=== PATIENT | male | born 1975 | race Caucasian/White ===

== ENCOUNTER 2017-07-06 13:33 | Inpatient (IN) | payer BC ==
[2017-07-06] MEDS ORDERED: methylPREDNISolone SOD SUCCI 125 MG/2 ML VIAL IV STA (15:31)
[2017-07-06] MEDS ORDERED: IPRATROPIUM-ALBUTEROL 3 ML NEB INHALATION STA (15:31)
--- NOTE | 2017-07-06 15:45 | ED ---
SOB HPI - General Chief Complaint: Shortness of Breath Stated Complaint: asthma attack Time Seen by Provider: 07/06/17 15:13 Source: patient, RN notes reviewed Mode of arrival: ambulatory Limitations: no limitations - History of Present Illness Initial Comments: 41-year-old male presents emergency department she went shortness of breath. Patient had increased redness present last 24-48 hours. Patient states it's similar symptoms but not this severe approximate 6 months ago at a time he quit smoking. Patient states that he saw his PCP today who gave him a shot of steroids at 9 AM, breathing treatment, pulmonary function testing. Patient was diagnosed with orchitis is given medications to go home. He is uses inhaler several times with minimal relief. He states symptoms seemed worsening. Patient denies any headache dizziness. Denies any chest pain does has chest tightness. Patient states she's wheezing] this to stop. Patient denies any leg swelling no leg pain. - Related Data Home Medications Medication Instructions Recorded Confirmed Albuterol Sulfate [Proair Hfa] 1 - 2 puff INHALATION RT-Q6H PRN 07/06/17 Desloratadine/Pseudoephedrine 1 tab PO Q12H PRN 07/06/17 07/06/17 [Clarinex-D 12 Hour Tablet] Allergies Allergy/AdvReac Type Severity Reaction Status Date / Time No Known Allergies Allergy Verified 07/06/17 15:28 Review of Systems ROS Statement: Those systems with pertinent positive or pertinent negative responses have been documented in the HPI. ROS Other: All systems not noted in ROS Statement are negative. Past Medical History Past Medical History: No Reported History History of Any Multi-Drug Resistant Organisms: None Reported Past Surgical History: Orthopedic Surgery Past Psychological History: No Psychological Hx Reported Smoking Status: Former smoker Past Alcohol Use History: Occasional Past Drug Use History: None Reported General Exam Limitations: no limitations General appearance: alert, in no apparent distress Head exam: Present: atraumatic, normocephalic, normal inspection Eye exam: Present: normal appearance, PERRL, EOMI. Absent: scleral icterus, conjunctival injection, periorbital swelling ENT exam: Present: normal exam, normal oropharynx, mucous membranes moist Neck exam: Present: normal inspection. Absent: tenderness, meningismus, lymphadenopathy Respiratory exam: Present: respiratory distress (Mild), wheezes, accessory muscle use. Absent: normal lung sounds bilaterally, rales, rhonchi, stridor Cardiovascular Exam: Present: regular rate, normal rhythm, normal heart sounds. Absent: systolic murmur, diastolic murmur, rubs, gallop, clicks Skin exam: Present: warm, dry, intact, normal color. Absent: rash Course Vital Signs 07/06/17 07/06/17 07/06/17 14:21 15:16 15:31 Temperature 97.8 F Pulse Rate 105 H 116 H Respiratory 20 20 Rate Blood Pressure 135/84 142/70 O2 Sat by Pulse 93 L 90 L 94 L Oximetry 07/06/17 07/06/17 07/06/17 15:41 15:59 16:07 Temperature Pulse Rate 112 H 108 H Respiratory Rate Blood Pressure O2 Sat by Pulse 99 Oximetry 07/06/17 07/06/17 16:55 17:09 Temperature Pulse Rate 100 100 Respiratory Rate Blood Pressure O2 Sat by Pulse Oximetry Medical Decision Making - Medical Decision Making 41-year-old male presented for dyspnea. Patient's found have early pneumonia on x-ray still has significant wheezing after 3 treatments in the emergency department. Patient be admitted for IV steroids and antibiotics and breathing treatments. - Lab Data Result diagrams: 07/06/17 15:49 07/06/17 15:49 Lab Results 07/06/17 07/06/17 Range/Units 15:49 15:49 WBC 13.0 H (3.8-10.6) k/uL RBC 5.50 (4.30-5.90) m/uL Hgb 16.3 (13.0-17.5) gm/dL Hct 48.3 (39.0-53.0) % MCV 87.7 (80.0-100.0) fL MCH 29.6 (25.0-35.0) pg MCHC 33.7 (31.0-37.0) g/dL RDW 13.5 (11.5-15.5) % Plt Count 296 (150-450) k/uL Neutrophils % 93 % Lymphocytes % 4 % Monocytes % 2 % Eosinophils % 1 % Basophils % 0 % Neutrophils # 12.1 H (1.3-7.7) k/uL Lymphocytes # 0.5 L (1.0-4.8) k/uL Monocytes # 0.2 (0-1.0) k/uL Eosinophils # 0.1 (0-0.7) k/uL Basophils # 0.1 (0-0.2) k/uL Sodium 143 (137-145) mmol/L Potassium 4.5 (3.5-5.1) mmol/L Chloride 103 (98-107) mmol/L Carbon Dioxide 22 (22-30) mmol/L Anion Gap 18 mmol/L BUN 10 (9-20) mg/dL Creatinine 0.61 L (0.66-1.25) mg/dL Est GFR (CKD-EPI)AfAm >90 (>60 ml/min/1.73 sqM) Est GFR (CKD-EPI)NonAf >90 (>60 ml/min/1.73 sqM) Glucose 146 H (74-99) mg/dL Calcium 10.1 (8.4-10.2) mg/dL Magnesium 2.1 (1.6-2.3) mg/dL Total Bilirubin 0.7 (0.2-1.3) mg/dL AST 24 (17-59) U/L ALT 45 (21-72) U/L Alkaline Phosphatase 102 (38-126) U/L Total Protein 8.1 (6.3-8.2) g/dL Albumin 4.9 (3.5-5.0) g/dL Disposition Clinical Impression: COPD exacerbation, Pneumonia Disposition: ADMITTED IP TO THIS HOSP Condition: Stable Referrals: Zoltan Victor DO [Primary Care Provider] - 1-2 days
[2017-07-06 16:05] LABS: Basophils # (A) 0.1 k/uL (0-0.2); Basophils % (A) 0 %; Eosinophils # (A) 0.1 k/uL (0-0.7); Eosinophils % (A) 1 %; HCT 48.3 % (39.0-53.0); HGB 16.3 gm/dL (13.0-17.5); Lymphocytes # (A) 0.5 k/uL (1.0-4.8); Lymphocytes % (A) 4 %; MCH 29.6 pg (25.0-35.0); MCHC 33.7 g/dL (31.0-37.0); MCV 87.7 fL (80.0-100.0); Mean Platelet Volume 7.4; Monocytes # (A) 0.2 k/uL (0-1.0); Monocytes % (A) 2 %; Neutrophils # (A) 12.1 k/uL (1.3-7.7); Neutrophils % (A) 93 %; Platelet Count 296 k/uL (150-450); RDW 13.5 % (11.5-15.5)
[2017-07-06 16:13] LABS: ALT 45 U/L (21-72); AST 24 U/L (17-59); Albumin 4.9 g/dL (3.5-5.0); Alkaline Phosphatase 102 U/L (38-126); Anion Gap 18 mmol/L; Blood Urea Nitrogen 10 mg/dL (9-20); Calcium 10.1 mg/dL (8.4-10.2); Carbon Dioxide 22 mmol/L (22-30); Chloride 103 mmol/L (98-107); Glucose 146 mg/dL (74-99); Magnesium 2.1 mg/dL (1.6-2.3); Potassium 4.5 mmol/L (3.5-5.1); Sodium 143 mmol/L (137-145); Total Bilirubin 0.7 mg/dL (0.2-1.3); Total Protein 8.1 g/dL (6.3-8.2)
--- NOTE | 2017-07-06 16:27 | XR ---
EXAMINATION TYPE: XR chest 2V DATE OF EXAM: 07/06/2017 CLINICAL HISTORY: Chest pain TECHNIQUE: Frontal and lateral views of the chest are obtained. COMPARISON: None FINDINGS: Mild increased density right medial lung base.] Atelectasis or developing infiltrate. The c ardiac silhouette size is within normal limits. The osseous structures are intact. IMPRESSION: Mild increased density right medial lung base.] Atelectasis or developing infiltrate.
[2017-07-06] MEDS ORDERED: ALBUTEROL NEBULIZED 2.5 MG/3 ML INHALATION STA (16:42)
[2017-07-06] MEDS ORDERED: ALBUTEROL NEBULIZED 2.5 MG/3 ML INHALATION PRN (17:24)
[2017-07-06] MEDS ORDERED: AZITHROMYCIN 500 MG in SODIUM CHLORIDE 0.9% 250 ML IVPB STA (17:26)
[2017-07-06] MEDS ORDERED: cefTRIAXone IN SWFI 1,000 MG/10 ML SYRINGE IVP STA (17:26)
--- NOTE | 2017-07-06 18:19 | P.HPIM ---
History of Present Illness H&P Date: 07/06/17 Chief Complaint: shortness of breath 41-year-old male that comes in with onset of shortness of breath. Patient says that he has had episodes of shortness of breath over the past 6 months. He had an episode about a month ago where he thought that was secondary to seasonal ALLERGIES. Today patient had seen his doctor today and was given a breathing treatment and was sent home. After patient got home patient's symptoms became worse became short of breath with exertion. He denies any fever or chills no coughs. No palpitation no chest pain. Upon evaluation in the ER patient was noticed to be hypoxic. So had nasal cannula placed. Chest x-ray showed infiltrates. Patient will be admitted for COPD exacerbation and pneumonia. Review of Systems all 10 systems reviewed and was otherwise negative except what was mentioned in HPI Constitutional: Denies chills, Denies fever, Denies lethargy, Denies sweats, Denies weight loss Ears, nose, mouth and throat: Denies vertigo Cardiovascular: Reports shortness of breath, Denies chest pain, Denies palpitations, Denies syncope Gastrointestinal: Denies bloating, Denies diarrhea, Denies nausea, Denies vomiting Musculoskeletal: Denies arm numbness/tingling, Denies neck pain Past Medical History Past Medical History: No Reported History History of Any Multi-Drug Resistant Organisms: None Reported Past Surgical History: Orthopedic Surgery Past Psychological History: No Psychological Hx Reported Smoking Status: Former smoker Past Alcohol Use History: Occasional Past Drug Use History: None Reported Medications and Allergies Home Medications Medication Instructions Recorded Confirmed Type Albuterol Sulfate [Proair Hfa] 1 - 2 puff INHALATION RT-Q6H PRN 07/06/17 History Desloratadine/Pseudoephedrine 1 tab PO Q12H PRN 07/06/17 07/06/17 History [Clarinex-D 12 Hour Tablet] Allergies Allergy/AdvReac Type Severity Reaction Status Date / Time No Known Allergies Allergy Verified 07/06/17 15:28 Physical Exam Vitals: Vital Signs Temp Pulse Resp BP Pulse Ox 07/06/17 17:36 98.8 F 116 H 20 134/74 95 07/06/17 17:09 100 07/06/17 16:55 100 07/06/17 16:07 99 07/06/17 15:59 108 H 07/06/17 15:41 112 H 07/06/17 15:31 94 L 07/06/17 15:16 116 H 20 142/70 90 L 07/06/17 14:21 97.8 F 105 H 20 135/84 93 L Intake and Output 07/06/17 07/06/17 07/06/17 06:59 14:59 22:59 Other: Weight 92.986 kg - Constitutional General appearance: no acute distress - EENT Eyes: EOMI, PERRLA - Neck Neck: no lymphadenopathy, no stridor Thyroid: bilateral: normal size - Respiratory Respiratory: bilateral: CTA, negative: rales, rhonchi, wheezing - Cardiovascular Rhythm: regular Heart sounds: normal: S1, S2 - Gastrointestinal General gastrointestinal: normal bowel sounds, no tenderness - Integumentary Integumentary: no pale, no rash - Neurologic Neurologic: CNII-XII intact - Musculoskeletal Musculoskeletal: gait normal - Psychiatric Psychiatric: A&O x's 3 Results CBC & Chem 7: 07/06/17 15:49 07/06/17 15:49 Labs: Abnormal Lab Results - Last 24 Hours (Table) 07/06/17 07/06/17 Range/Units 15:49 15:49 WBC 13.0 H (3.8-10.6) k/uL Neutrophils # 12.1 H (1.3-7.7) k/uL Lymphocytes # 0.5 L (1.0-4.8) k/uL Creatinine 0.61 L (0.66-1.25) mg/dL Glucose 146 H (74-99) mg/dL Assessment and Plan (1) COPD exacerbation Narrative/Plan: IV Solu-Medrol DuoNeb's Current Visit: Yes Status: Acute Code(s): J44.1 - CHRONIC OBSTRUCTIVE PULMONARY DISEASE W (ACUTE) EXACERBATION SNOMED Code(s): 205563472 (2) Pneumonia Narrative/Plan: IV Rocephin and azithromycin Current Visit: Yes Status: Acute Code(s): J18.9 - PNEUMONIA, UNSPECIFIED ORGANISM SNOMED Code(s): 884642453 (3) Tobacco abuse Narrative/Plan: Quit 6 months ago Current Visit: Yes Status: Acute Code(s): Z72.0 - TOBACCO USE SNOMED Code( s): 057966455
[2017-07-06] MEDS: IPRATROPIUM-ALBUTEROL 3 ML NEB INHALATION SCH (20:11)
[2017-07-06 22:50] VITALS: BMI 32.1
[2017-07-06] MEDS: methylPREDNISolone SOD SUCCI 125 MG/2 ML VIAL IV SCH (23:31)
[2017-07-07] MEDS: methylPREDNISolone SOD SUCCI 125 MG/2 ML VIAL IV SCH ×3 (06:22→17:59)
[2017-07-07] MEDS: IPRATROPIUM-ALBUTEROL 3 ML NEB INHALATION SCH ×4 (08:44→20:16)
[2017-07-07] MEDS ORDERED: ACETAMINOPHEN TAB 325 MG TAB PO PRN (08:54)
[2017-07-07] MEDS ORDERED: LEVOFLOXACIN 750 MG TAB PO SCH (09:00)
--- NOTE | 2017-07-07 10:30 | XR ---
EXAMINATION TYPE: XR chest 2V DATE OF EXAM: 07/07/2017 COMPARISON: 07/06/17 HISTORY: Chest pain TECHNIQUE: Frontal and lateral views of the chest are obtained. FINDINGS: There is no focal air space opacity. No evidence for pneumothorax. No pleural effusion. The cardiac silhouette size is within normal limits. The osseous structures are grossly intact. IMPRESSION: 1. No acute cardiopulmonary process.
--- NOTE | 2017-07-07 11:18 | P.PN ---
Subjective Progress Note Date: 07/07/17 Patient reports his breathing is much improved has been able to walk to the bathroom and back without his oxygen still wheezing pretty badly though, no acute events overnight Objective - Vital Signs Vital signs: Vital Signs Temp 99.2 F 07/07/17 07:00 Pulse 97 07/07/17 08:54 Resp 16 07/07/17 07:00 BP 137/70 07/07/17 07:00 Pulse Ox 91 L 07/07/17 07:00 Intake & Output 07/06/17 07/07/17 07/07/17 18:59 06:59 18:59 Intake Total 650 Balance 650 Weight 92.986 kg 92.986 kg Intake: Oral 650 Other: # Voids 2 - Exam Constitutional: No acute distress, conversant, pleasant Eyes: Anicteric sclerae, moist conjunctiva, no lid-lag, PERRLA ENMT: NC/AT,Oropharynx clear, no erythema, exudates Neck:Supple, FROM, no masses, or JVD, No carotid bruits; No thyromegaly Lungs: Diffuse wheezes, Normal respiratory effort, no accessory muscle use Cardiovascular: Heart regular in rate and rhythm, No murmurs, gallops, or rubs no peripheral edema Abdominal: Soft Nontender, nom distended, no guarding, no rebound or rigidity, Normoactive bowel sounds No hepatomegaly, No splenomegaly, No palpable mass No abdominal wall hernia noted Skin: Normal temperature, tone, texture, turgor, No induration No subcutaneous nodules, No rash, lesions, No ulcers Extremities:No digital cyanosis No clubbing, Pedal pulses intact and symmetrical Radial pulses intact and symmetrical Normal gait and station, No calf tenderness Psychiatric: Alert and oriented to person, place and time, Appropriate affect Intact judgement Neuro: Muscles Strength 5/5 in all 4 extremities, Sensation to light touch grossly present throughout, Cranial nerves II-XII grossly intact. No focal sensory deficits - Labs CBC & Chem 7: 07/06/17 15:49 07/06/17 15:49 Labs: Abnormal Lab Results - Last 24 Hours (Table) 07/06/17 07/06/17 Range/Units 15:49 15:49 WBC 13.0 H (3.8-10.6) k/uL Neutrophils # 12.1 H (1.3-7.7) k/uL Lymphocytes # 0.5 L (1.0-4.8) k/uL Creatinine 0.61 L (0.66-1.25) mg/dL Glucose 146 H (74-99) mg/dL Assessment and Plan (1) Acute respiratory failure with hypoxia Narrative/Plan: * Secondary to acute COPD exacerbation superimposed on acute bronchitis with atelectasis * Patient on 2 L nasal cannula we'll do a home O2 assessment * Wean oxygen as tolerated, good oxygen saturations on 2 L nasal cannula Current Visit: Yes Status: Acute Code(s): J96.01 - ACUTE RESPIRATORY FAILURE WITH HYPOXIA SNOMED Code(s): 05156072 (2) COPD exacerbation Narrative/Plan: * Secondary to acute bronchitis * Continue with systemic steroids Solu-Medrol 60mg IV every 6, with scheduled and when necessary DuoNeb breathing treatments Current Visit: Yes Status: Acute Code(s): J44.1 - CHRONIC OBSTRUCTIVE PULMONARY DISEASE W (ACUTE) EXACERBATION SNOMED Code(s): 378790362 (3) Atelectasis, right Narrative/Plan: * Repeat chest x-ray shows resolution of the atelectasis of note there is no infiltrates there and patient has been afebrile throughout hospitalization * Continue on Z-Lazaro for bronchitis Current Visit: Yes Status: Acute Code(s): J98.11 - ATELECTASIS SNOMED Code (s): 75075697 (4) Tobacco abuse Current Visit: Yes Status: Acute Code(s): Z72.0 - TOBACCO USE SNOMED Code( s): 329464365
[2017-07-07 17:22] LABS: Appearance,Urine Clear (Clear); Bilirubin,Urine Negative (Negative); Blood,Urine Negative (Negative); Color,Urine Yellow; Glucose,Urine (UA) 4+ (Negative); Ketones,Urine Trace (Negative); Leukocyte Esterase,Urine Negative (Negative); Nitrite,Urine Negative (Negative); Protein,Urine Trace (Negative); Specific Gravity,Urine 1.024 (1.001-1.035); Urobilinogen,Urine <2.0 mg/dL (<2.0)
[2017-07-07 21:16] VITALS: TEMP 97.7
[2017-07-08] MEDS: methylPREDNISolone SOD SUCCI 125 MG/2 ML VIAL IV SCH ×2 (00:31→06:11)
[2017-07-08 07:36] VITALS: BP 117/69
[2017-07-08] MEDS: IPRATROPIUM-ALBUTEROL 3 ML NEB INHALATION SCH ×2 (08:21→11:38)
[2017-07-08] MEDS ORDERED: AZITHROMYCIN 250 MG TAB PO SCH (09:00)
[2017-07-08 09:59] VITALS: RESP 20
[2017-07-08 11:56] VITALS: PULSE 96
--- NOTE | 2017-07-08 11:56 | P.DS ---
Providers Date of admission: 07/06/17 17:35 Attending physician: Eduardo Merino MD Primary care physician: Zoltan Victor - Discharge Diagnosis(es) (1) Acute respiratory failure with hypoxia Current Visit: Yes Status: Acute (2) COPD exacerbation Current Visit: Yes Status: Acute (3) Atelectasis, right Current Visit: Yes Status: Acute (4) Tobacco abuse Current Visit: Yes Status: Acute Hospital Course: The patient is a 41-year-old male that was admitted for acute respiratory failure with hypoxia secondary to acute COPD exacerbation triggered by acute bronchitis. On presentation the patient was noted to be in respiratory failure and hypoxic on room air as placed on supplemental oxygen, and started on systemic steroids with Solu-Medrol IV with scheduled and when necessary DuoNeb bronchodilator breathing treatments along with empiric IV antibiotics with Rocephin and azithromycin to treat what was presumed to initially be a right lower lobe community-acquired pneumonia after initial chest x-ray showed possible right sided infiltrates versus atelectasis, the patient was noted to have a leukocytosis but remained afebrile, blood cultures were negative. Repeat chest x-ray was clear decreasing the likelihood that this was in fact pneumonia. The patient was however continued on oral azithromycin. The patient had a home O2 eval prior to discharge but did not qualify as is exertional ambulatory oximetry desats was only down to 89% with good recovery to 92% on room air. He was subsequently discharged home in stable condition with a new prescription for azithromycin and a prednisone steroid taper. The patient was instructed to use his rescue inhaler as needed and to follow up with his PCP in the next 2-3 days. This discharge process took approximately 35 minutes. Constitutional: No acute distress, conversant, pleasant Eyes: Anicteric sclerae, moist conjunctiva, no lid-lag, PERRLA ENMT: NC/AT,Oropharynx clear, no erythema, exudates Neck:Supple, FROM, no masses, or JVD, No carotid bruits; No thyromegaly Lungs: Mild expiratory wheezes, Clear to percussion, Normal respiratory effort, no accessory muscle use with got good oxygen saturations on room air Cardiovascular: Heart regular in rate and rhythm, No murmurs, gallops, or rubs no peripheral edema Abdominal: Soft Nontender, nom distended, no guarding, no rebound or rigidity, Normoactive bowel sounds No hepatomegaly, No splenomegaly, No palpable mass No abdominal wall hernia noted Skin: Normal temperature, tone, texture, turgor, No induration No subcutaneous nodules, No rash, lesions, No ulcers Extremities:No digital cyanosis No clubbing, Pedal pulses intact and symmetrical Radial pulses intact and symmetrical Normal gait and station, No calf tenderness Psychiatric: Alert and oriented to person, place and time, Appropriate affect Intact judgement Neuro: Muscles Strength 5/5 in all 4 extremities, Sensation to light touch grossly present throughout, Cranial nerves II-XII grossly intact. No focal sensory deficits Patient Condition at Discharge: Stable Plan - Discharge Summary Discharge Rx Participant: Yes New Discharge Prescriptions: New Azithromycin [Zithromax] 250 mg PO DAILY #5 tab Continue Albuterol Sulfate [Proair Hfa] 1 - 2 puff INHALATION RT-Q6H PRN PRN Reason: sob Desloratadine/Pseudoephedrine [Clarinex-D 12 Hour Tablet] 1 tab PO Q12H PRN PRN Reason: Allergy Symptoms Discharge Medication List Albuterol Sulfate [Proair Hfa] 1 - 2 puff INHALATION RT-Q6H PRN 07/06/17 [ History] Desloratadine/Pseudoephedrine [Clarinex-D 12 Hour Tablet] 1 tab PO Q12H PRN [History] Azithromycin [Zithromax] 250 mg PO DAILY #5 tab 07/08/17 [Rx] Follow up Appointment(s)/Referral(s): Zoltan Victor DO [Primary Care Provider] - 07/19/17 1:45 pm Discharge Disposition: HOME SELF-CARE
== END 2017-07-08 12:50 | disposition home or self-care (01) | DRG 189 ==
LOC: EC 13:33 → 5MS5E 17:35
PROVIDERS: ADMIT Internal Medicine; ATTEND Internal Medicine
DX: J96.01 Acute respiratory failure with hypoxia (principal); J44.0 Chronic obstructive pulmonary disease with (acute) lower respiratory infection; J98.11 Atelectasis; J44.1 Chronic obstructive pulmonary disease with (acute) exacerbation; N45.2 Orchitis; J20.9 Acute bronchitis, unspecified; Z87.891 Personal history of nicotine dependence
CPT/HCPCS: 36415; 71046; 80053; 81003; 83735; 85025; 87040; 94640; 94760; 96365; 96375; 99285